=== PATIENT | female | born 1945 | race Caucasian/White ===

== ENCOUNTER → 2020-04-24 09:58 | Outpatient (CLI) | payer MEDICARE, SELFPAY ==
--- NOTE | 2020-04-24 10:06 | RAD_ITS ---
STUDY: X-RAY - LUMBAR SPINE REASON FOR EXAM: Female, 75 years old. CHRONIC LOWER BACK PAIN X YEARS TECHNIQUE: 3 view(s) of the lumbar spine were obtained. COMPARISON: None FINDINGS: Normal lumbar lordosis. There is no substantial scoliosis. There is a normal alignment of the vertebrae. There is multilevel endplate spondylosis of the lumbar vertebrae. There is multi-level degenerative disc disease with multi-level disc space narrowing. The soft tissue structures are unremarkable. RAD/Lumbar Spine 2 or 3 Views IMPRESSION: Degenerative changes of the spine, as detailed above. Electronically Signed: Maico Ash, at 10:25 EST , Service support ,
== END ==
PROVIDERS: PCP Family Medicine; Referring Provider Anesthesiology Pain Medicine; Visit Provider Anesthesiology Pain Medicine
DX: M54.5 Low back pain (principal)
CPT/HCPCS: 72100

== ENCOUNTER → 2020-06-14 12:39 | Outpatient (CLI) | payer MEDICARE, SELFPAY ==
--- NOTE | 2020-06-14 19:20 | SP.MBSS_ITS ---
Modified Barium Swallow - Patient Information Study Date: 06/14/20 Study Time: 13:00 Direct Billable Minutes: 75 Total Minutes procedure & reportin Diagnosis: Dysphagia (R13.12) Referring Physician: Jerry Smith Reason for Referral: The patient is a 75 year old female referred for a modified barium swallow (MBS) study to objectively assess the patients oropharyngeal swallow function under fluoroscopy secondary to reported concerns for PO intake tolerance. She details sensations of bolus stasis below the laryngeal notch in addition to discomfort and possible aerophagia during intake that appeared to occur around the same time that her deep brain stimulators were placed. She reports that her family has recently noticed unexplained wheezing particularly during the evenings, a rough/raspy vocal quality, and reported diurnal sialorrhea (drooling during the daytime) that was not present prior to stimulator placement. She does report she is somewhat concerned that she is refluxing at night, with further ENT workup anticipated. she reports that swallowing is ?hard?, though it was difficult for her to further expand. Medical History: Essential tremors status post deep brain stimulator placement, status post esophageal dilation, status post back surgery. - Penetration-Aspiration Scale Penetration-Aspiration Scale: OBJECTIVE ASSESSMENT OF SWALLOW FUNCTION (QUANTITATIVE ? PER TRIAL): PENETRATION / ASPIRATION SCALE (NG): 1 = does not enter airway 2 = enters airway/above vocal folds/ejected 3 = enters airway/above vocal folds/not ejected 4 = enters airway/contacts vocal folds/ejected 5 = enters airway/contacts vocal folds/not ejected 6 = enters airway/below vocal folds/ejected 7 = enters airway/below vocal folds/not ejected despite effort 8 = enters airway/below vocal folds/no effort PENETRATION / ASPIRATION SCALE (SCORE): Thin liquid - 5 mL tsp.: 1 Thin liquids via cup: 1 Thin liquids via straw: 1 Thin liquids via straw: 1 Thin liquids via straw: 1 Thin liquids via straw: 1 Pudding via spoon: 1 Pudding via spoon: 1 Solid textures: 1 Thin liquids via straw: 1 Thin liquids via straw: 1 - Oral Phase Labial Seal: Interlabial escape, no progression to anterior lip Tongue Control During Bolus Hold: Cohesive bolus between tongue to palatal seal Bolus Preparation/Mastication: Slow prolonged chewing/mashing with complete recollection Bolus Transport/Lingual Motion: Repetitive/disorganized tongue motion Oral Residue: Residue collection on oral structures - Pharyngeal Phase Initiation of Pharyngeal Swallow: Bolus head in valleculae Soft Palate Elevation: No bolus between soft palate and pharyngeal wall Laryngeal Elevation: Partial superior movement thyroid cart/partial apprx aryt- epig petiole Anterior Hyoid Excursion: Complete anterior movement Epiglottic Movement: Complete inversion Laryngeal Vestibule Closure at Height of Swallow: Complete; no air/contrast in laryngeal vestibule Pharyngeal Stripping Wave: Present - complete Pharyngoesophageal Segment Opening: Complete distension and complete duration; no obstruction of flow Tongue Base Retraction: Trace column of contrast between tongue base & post. pharyngeal wall Pharyngeal Residue: Trace residue within or on pharyngeal structures - Diagnosis/Impression Diagnosis: Dysphagia (R13.11) Impression: The patient presents with mild oral dysphagia (DSRS: 2) that appears to correlate with the placement of her deep brain stimulators secondary to her diagnosis of essential tremors. Her swallow profile is marked by discoordinated (fluctuating) lingual movements with mild lingual fasciculation (twitching) that is not uncommon with individuals with movement disorders / placement of deep brain stimulators within the basal ganglia, which was heightened with semisolids and solids. She was noted to demonstrate somewhat prolonged mastication with an anterior munching quality, though her mastication abilities were overall functional. No anterior bolus loss was noted during the assessment, though given her report of diurnal sialorrhea she is likely more prone to occurrence. Her pharyngeal phase appears unremarkable. Her swallow function was overall preserved despite her oral / oral transpiration phase abnormalities. There is a small non-obstructive cricopharyngeal bar located at the C-6 C-7 level, no impact on pharyngoesophageal motility. When considering that her deficits are remarkably similar to that of individuals diagnosed with movement disorders (more specifically Parkinson?s) whom received deep brain stimulation, and that her reported symptomology appears to correlate with placement, this is the most likely etiology of cause given the information available. It is difficult to provide a prognosis for improvement or anticipate further deterioration as the etiology necessitating stimulator placement does not typically complicate oropharyngeal functioning in the ways that a progressive neurological movement disorder like Parkinson?s would. Currently, her deficits appear to be managed successfully through reduction in bolus rate / volume. I discussed with her the association between the consistency and severity between diurnal sialorrhea and dysphagia with individuals with more common neurological etiologies that impact swallowing and encouraged her to report any fluctuations to her care team, with considerations for further investigation if experienced. - Recommendations Comment: DIET TEXTURE RECOMMENDATIONS: regular easy to chew textured (IDDSI: 7), thin liquid diet (IDDSI: 0) RECOMMENDED COMPENSATORY STRATEGIES: consider alternating temperature / tastes, reduced bolus volume, reduced rate of intake, seated upright at 90 degrees during PO intake, remain upright for 30-60 minutes post meal (GERD precaution), medications one at a time with considerations for a puree antecedent. Need for Skilled Speech Therapy Services: Yes Education Completed: 1. Described result of evaluation., 2. Pt understands evaluation & agrees with goals and treatment plan., 7. Pt requires further education on strategies & risks. - Image Count: [id number] - Status Active ST Patient: Active
== END ==
PROVIDERS: PCP Family Medicine; Referring Provider Internal Medicine Gastroenterology; Visit Provider Internal Medicine Gastroenterology
DX: K22.2 Esophageal obstruction (principal); K21.9 Gastro-esophageal reflux disease without esophagitis
CPT/HCPCS: 74230; 92611

== ENCOUNTER → 2020-07-11 12:38 | Outpatient (CLI) | payer MEDICARE, SELFPAY ==
--- NOTE | 2020-07-11 12:41 | RAD_ITS ---
STUDY: X-RAY - RIGHT SHOULDER REASON FOR EXAM: Right shoulder pain for 2 months. TECHNIQUE: 4 view(s) of the shoulder. COMPARISON: None. FINDINGS: Normal glenohumeral articulation. There is acromioclavicular arthrosis. Normal acromion. Normal humeral head and visualized proximal humerus. The soft tissue structures are unremarkable. Normal visualized pulmonary apex. RAD/Shoulder min 2 Views IMPRESSION: Acromioclavicular arthrosis. Electronically Signed: Kings Negro MD at 14:29 EST Tel , Service support ,
== END ==
PROVIDERS: PCP Family Medicine; Referring Provider Anesthesiology Pain Medicine; Visit Provider Anesthesiology Pain Medicine
DX: M25.511 Pain in right shoulder (principal); G25.0 Essential tremor; R47.81 Slurred speech; M54.9 Dorsalgia, unspecified; M79.606 Pain in leg, unspecified
CPT/HCPCS: 73030; 92507

== ENCOUNTER 2020-07-11 14:00 | Outpatient (RCR) | payer MEDICARE, SELFPAY ==
--- NOTE | 2020-06-12 09:42 | HP.PTEVAL ---
Patient's Visit Information MYNOR BOUDREAUX is a 75 year old F referred to Physical Therapy by GENE PONCE with a diagnosis of Back and leg pain. Date of Evaluation: 06/09/20 Physical Therapist: Carlton Long DPT - Visit Plan Frequency: 1-2x /Week Duration: 4-6 Weeks Plan: Start with core and BLE strnghtening. Progress gait/walking program. Add in dynamic and static balance activities. - Subjective Pt. is here today for her initial evaluation with diagnosis of back and leg pain. Pt. reports that her leg pain is much better since having injection. She reports having a low back suergery many years ago. She denies N/T, distal leg pain, no myotomal weakness. Pt. was having pain down her R leg anteriorly, but is better right now. She reports not moving much since COVID started. She reports having overall weakness noted mostly in BLE and feels liker her balance is not great. Pt. is hopeful to increase her BLE strenght and improve her balance allowing for increased stability with all functional mobility. - Pain Lumbar spine Pain Intensity (Out of 10): 1 Pain Intensity Range: 0, 6 R hip Pain Intensity (Out of 10): 0 Pain Intensity Range: 0, 2 L hip Pain Intensity (Out of 10): 0 Pain Intensity Range: 0, 2 - Objective POSTURE: Pt. has slight flexed posture in stance, slight increase in anterior pelvic tilt. Pt. is able to improve with VCing. PALPATION: Pt. has mild tenderness at lumbar erector spinea. No pain with palpation of LEs. NEURO: Pt. has normal sensation and normal DTR of BLEs. Pt. is able to rise on heels and toes. ROM: Lumbar spine: flexion min loss NE, extension mod loss NE, SB mod loss B NE, rotation min loss bilat NE. Pt. has tight HS and tight hip flexors bilaterally. Pt. has normal hip ROM bilaterally, good hip IR bilat. MMT: RLE- ankle 5/5 throughout; knee- ext 4/5, flexion 4/5; hip- flexion 4/5, abd 4-/5, ext 4-/5. LLE- ankle 5/5 throughout; knee- ext 4/5, flexion 4/5; hip- flexion 4/5, abd 4-/5, ext 4-/5. GAIT: Pt. has decreased step length, increased lateral hip sway. Pt. has flexed posture noted throughout. STAIRS: Step to pattern noted, no increase in pain, heavy use of BHR. BALANCE: FGA 20/30. TUG- 13sec without AD. - Goals Goal 1:: LTG: Pt. to be I with HEP. Goal Time Frame: 4-6 Weeks Goal 2:: STG: Pt. to walk .5 miles without increase in symptoms and improved tolerance. Goal Time Frame: 2-4 Weeks Goal 3:: LTG: Pt. to have increased BLE and core strength increased by 1/2 grade throughout. Goal Time Frame: 4-6 Weeks Goal 4:: LTG: Pt. to have increased FGA to 24/30 indicating reduce risk for future falls. Goal Time Frame: 4-6 Weeks - Rehabilitation Potential Physical Therapy Diagnosis: Pt. has and signs and symptoms consistent with low back pain and leg pain. She has improved symptoms since her injection. She has marked weakness in her core and BLEs and decreased balance. She would benefit from PT to work on above limitation and progressing overall functional acrtivities. Rehabilitation Potential: Good - Anticipated Interventions Patient/Client Instruction: Educate patient on: Condition, Plan of Care, Risk Factors, Benefits of Fitness Program For the Purpose of:: To improve self management, To prevent re-injury, To improve ability to perform tasks related to life management, To improve tolerance to ADL's Therapeutic Exercise to Include: Strength training, Power training, Endurance training, Balance training, Coordination, Body mechanics, Postural training, Flexibilty training, Gait and locomotor training, Passive ROM, Active ROM, Dynamic Lumbar Stabilization For the Purpose of:: To increase ROM, To improve nutrient delivery to tissue, To improve ability to perform ADL's, To increase tolerance to activity/condition/position, To decrease level of supervision to perform tasks, To improve gait and locomotor functions, To improve health of tissue Thank you for the opportunity to evaluate your patient. For Medicare and Medicare HMO plans, please review the plan of care and approve it. It will need to be FAXED BACK to us at [phone] for Medicare purposes. For Medicare only, by signing this I certify the plan of care. Please let me know if there are questions or concerns regarding this plan of care. Physician Signature: Date:
--- NOTE | 2020-06-13 14:48 | HP.SP.AD_ITS ---
History - History Date of Eval: 06/09/20 Medical Diagnosis (from RX): essential tremors Previous speech therapy: No Results: Metformin, gabapentin, water pill. Other Relevant Medical History/Diagnoses/Surgery: Back surgeries. Esophageal dilation. Smoking Status: Never smoker - Pain Is pain an issue with your current prescribed condition?: No - Personal Occupation: Retired Right Hearing Abillity: Use of Hearing Aid Left Hearing Abillity: Use of Hearing Aid Visual Assistive Devices: Glasses Patients Living Arrangements: With Significant Other Subjective Oral Motor - Subjective Patient Reports: Slurred Speech, Difficulty being Understood Objective Oral Motor - Oral Status Dentition: WNL Subjective Voice - Intake Water (ounces): 48 Tea (ounces): 8 Soda (ounces): 8 Juice (ounces): 4 - Alcoholic Beverage Intake Intake: Never Subjective Clinical Impression - Adult Clinical Impression Voice deterioration: reduction of volume or vocal quality with prolonged use: Present Vocal tension: a tightness of the laryngeal musculature during voicing: Present Objective Voice - Date of Diagnosis Previous Speech Therapy (If yes, describe): No - Implantation Deep brain implantation (If yes, answer next question): Yes Date and Effectiveness: Placed in February 2020, activiated in March 2020. - Objective data Objective Data: Objective data: Sound pressure level (SPL acoustic correlation of vocal loudness) was measured with a sound level meter at a distance of 40 cm from the patient's mouth. Average conversational loudness is 70-80 dB and sustained phonation duration is 15 to 20 seconds for a typical adult. Sustained Phonation Intensity (dB SPL): 70 Sustained Phonatin duration (seconds): 10 Is the individual stimulable to increase vocal intensity: Yes Plan - Plan Plan: Speech therapy is warranted for voice therapy for reduced volume which uis impacting her ability to communicate in all settings. - Recommendations MBS: Yes Treatment Warranted: Yes - Frequency Frequency: 1x/Week Duration: 2 Months Visits in this POC: 8 - Prognosis Prognosis: Good - Goals that are Established: Determination:: Goals will be added/modified as deemed necessary and appropriate. Therapy will be discontinued when results of re-evaluation indicate therapy is no longer needed or lack of progress has been documented. - Goal #1-5 Goal #1: Patient will increase vocal loudness to reach a target sound pressure level of 70 dB RELIABILITY TECHNOLOGIST with 1 cue during sustained phonation, which will help increase vocal respiratory support for functional communication. Goal #2: Patient will increase vocal loudness to reach a target sound pressure level of 70 dB RELIABILITY TECHNOLOGIST with 1 cue during reading at the word and sentence level, which will help increase vocal respiratory support for functional communication. Goal #3: Patient will increase vocal loudness to reach a target sound pressure level of 70 dB RELIABILITY TECHNOLOGIST with 1 cue during conversation for functional communication. Education - Patient has Indicated that the Following Identified Educational Needs: None The Patient has indicated that they have no educational or learning abilities that may effect their care.: Yes - Patient Instruction Patient Education: Diagnosis, Treatment Plan, Goals Person Taught: Patient Teaching Method: Discussion Response to teaching: Verbalize understanding
== END 2020-07-11 19:00 | disposition home or self-care (01) ==
LOC: SP 14:00
PROVIDERS: PCP Family Medicine
DX: G25.0 Essential tremor (principal); R47.81 Slurred speech; M54.9 Dorsalgia, unspecified; M79.606 Pain in leg, unspecified
CPT/HCPCS: 92507; 92524; 97161

== ENCOUNTER → 2020-12-07 10:53 | Outpatient (CLI) | payer MEDICARE, SELFPAY ==
--- NOTE | 2020-12-07 11:00 | RAD_ITS ---
STUDY: X-RAY - RIGHT KNEE REASON FOR EXAM: Chronic right knee pain. TECHNIQUE: 4 view(s) of the knee. COMPARISON: None. FINDINGS: Normal visualized distal femur. Normal visualized proximal tibia and fibula. Normal proximal tibiofibular articulation. Normal medial femorotibial compartment. Normal lateral femorotibial compartment. Normal patellofemoral articulation. The soft tissue structures are unremarkable. RAD/Knee 4 or More Views IMPRESSION: Unremarkable x-ray examination of the right knee. Electronically Signed: Kings Negro MD at 14:03 EDT Tel , Service support ,
== END ==
PROVIDERS: PCP Family Medicine; Referring Provider Anesthesiology Pain Medicine; Visit Provider Anesthesiology Pain Medicine
DX: M25.561 Pain in right knee (principal)
CPT/HCPCS: 73564

== ENCOUNTER → 2021-10-30 | Outpatient (CLI) | payer MEDICARE, SELFPAY ==
--- NOTE | 2021-10-30 09:19 | RAD_ITS ---
STUDY: X-RAY - RIGHT KNEE REASON FOR EXAM: Female, 76 years old. KNEE PAIN TECHNIQUE: 2 view(s) of the knee. COMPARISON: None. FINDINGS: Normal visualized distal femur. Normal visualized proximal tibia and fibula. Normal proximal tibiofibular articulation. Normal medial femorotibial compartment. Normal lateral femorotibial compartment. Normal patellofemoral articulation. There is a soft tissue prominence in the suprapatellar region suggesting a small volume joint effusion. The soft tissue structures are unremarkable. RAD/Knee 1 or 2 Views IMPRESSION: Effusion, as described above. MRI may be useful. Electronically Signed: He Bryant MD at 16:53 EDT ,
== END | disposition home or self-care (01) ==
PROVIDERS: PCP Family Medicine; Referring Provider Anesthesiology Pain Medicine; Visit Provider Anesthesiology Pain Medicine
DX: M25.561 Pain in right knee (principal)
CPT/HCPCS: 73560